=== PATIENT | female | born 1980 | race African-American/Black ===

== ENCOUNTER 2017-01-28 10:56 | Emergency (ER) | payer BC | END 2017-01-28 12:49 | disposition home or self-care (01) | LOC: ER 10:56 | PROC: 2W3DX1Z Immobilization of Left Lower Arm using Splint (ICD-10-PCS; principal; 2017-01-28) | DX: M25.532 Pain in left wrist (principal) | CPT/HCPCS: 73110-LT; 99283; A9270-GY ==